=== PATIENT | male | born 1975 | race Caucasian/White ===

== ENCOUNTER 2017-12-24 10:49 | Emergency (ER) | payer SELFPAY ==
[~2017-12-24] VITALS: Ht 170.2 cm; Wt 69.9 kg
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
--- NOTE | 2017-12-24 10:56 | NUR ---
DR MUSA AT BEDSIDE FOR EVAL.
[2017-12-24] MEDS ORDERED: ONDANSETRON HCL/PF 4 MG/2 ML VIAL ONE (11:00)
[2017-12-24] MEDS ORDERED: Thiamine 100 MG/ML VIAL ONE (11:00)
[2017-12-24] MEDS ORDERED: IV NS 0.9% 1,000 ML BAG IV ONE (11:00)
[2017-12-24] MEDS ORDERED: ONDANSETRON HCL/PF 4 MG/2 ML VIAL IVP ONE (11:00)
[2017-12-24] MEDS ORDERED: Thiamine 100 MG in IV D5W 50 ML IV SCH (11:00)
[2017-12-24 12:03] LABS: BASOPHILS % (AUTO) 0.3 % (0.0-2.0); EOSINOPHILS % (AUTO) 1.2 % (0.0-6.0); HEMATOCRIT 35 % (39-51); HEMOGLOBIN 12.3 g/dL (13.5-17.5); LYMPHOCYTES # (AUTO) 1.9 /CMM (0.8-4.8); LYMPHOCYTES % (AUTO) 30.3 % (20.0-44.0); MEAN CORPUSCULAR HGB CONC 35 g/dl (31.0-36.0); MEAN CORPUSCULAR VOLUME 94 fL (80-96); MONOCYTES # (AUTO) 0.6 /CMM (0.1-1.30); MONOCYTES % (AUTO) 9.1 % (2.0-12.0); NEUTROPHILS # (AUTO) 3.5 /CMM (1.8-8.9); NEUTROPHILS % (AUTO) 59.1 % (43.0-81.0); PLATELET COUNT (AUTO) 239 /CMM (150-450); RDW COEFFICIENT OF VARIATION 14.1 (11.5-15.0); RED BLOOD CELL COUNT(AUTO) 3.71 MIL/uL (4.5-6.0); WHITE BLOOD COUNT (AUTO) 6.1 K/uL (4.3-11.0)
[2017-12-24 12:07] LABS: INR 0.9 (0.85-1.15)
[2017-12-24 12:10] LABS: ALBUMIN 3.2 g/dL (3.4-5.0); BILIRUBIN,DIRECT 0.1 mg/dL (0.0-0.2); BILIRUBIN,TOTAL 0.2 mg/dL (0.2-1.0); CALCIUM, SERUM 7.2 mg/dL (8.5-10.1); CREATININE 0.8 mg/dL (0.6-1.3); POTASSIUM 3.4 mmol/L (3.5-5.1)
--- NOTE | 2017-12-24 15:01 | NUR ---
D/c home ACI given home ambulatory stable
[2017-12-24 18:24] VITALS: BP 125/65
== END 2017-12-24 15:01 | disposition home or self-care (01) ==
LOC: ER 10:56
DX: R41.82 Altered mental status, unspecified (principal); F10.129 Alcohol abuse with intoxication, unspecified
CPT/HCPCS: 36415; 80048; 80076; 82140; 85025; 85730; 96365; 96375; 99284; A4606; G0480; J2405; J3411; J7030; J7060; Z7610